=== PATIENT | female | born 1980 | race Caucasian/White ===

== ENCOUNTER 2020-12-01 14:21 | Emergency (ER) | payer OTHER ==
[~2020-12-01] VITALS: Ht 172.7 cm; Wt 109.1 kg
[2020-12-01] MEDS ORDERED: QUET200T PO (14:29)
[2020-12-01] MEDS ORDERED: THYR30 PO (14:29)
[2020-12-01] MEDS ORDERED: ESCI-8 PO (14:29)
[2020-12-01 16:32] VITALS: BP 160/79
[2020-12-01 17:07] LABS: APPEARANCE,URINE CLOUDY (CLEAR); BILIRUBIN,URINE NEGATIVE (NEGATIVE); GLUCOSE, URINE (UA) NEGATIVE (NEGATIVE); KETONES,URINE TRACE mg/dL (NEGATIVE); LEUKOCYTE ESTERASE ,URINE SMALL (NEGATIVE); NITRATE,URINE NEGATIVE (NEGATIVE); OCCULT BLOOD,URINE LARGE (NEGATIVE); PROTEIN,URINE POS 1+ (NEGATIVE)
[2020-12-01 17:40] LABS: RBC,URINE 26-50 /HPF (0-2)
[2020-12-01 17:41] LABS: BACTERIA,URINE Moderate /HPF (None Seen); MUCUS,URINE Moderate LPF (None Seen); SQUAMOUS EPITHELIAL CELL,UR Few /LPF (None Seen)
== END 2020-12-01 17:02 | disposition left against medical advice (07) ==
LOC: EMS 14:21
DX: N93.9 Abnormal uterine and vaginal bleeding, unspecified (principal); F32.9 Major depressive disorder, single episode, unspecified
CPT/HCPCS: 81001; 87086; 99283

== ENCOUNTER 2022-07-26 10:26 | Emergency (ER) | payer OTHER ==
[~2022-07-26] VITALS: Ht 167.6 cm; Wt 81.8 kg
[~2022-07-26 10:26] MED LIST: ESCI-8 PO; QUET200T PO; THYR30 PO
[2022-07-26] MEDS ORDERED: ESCI20TA87 PO ×2 (10:48→15:14)
[2022-07-26] MEDS ORDERED: QUET400T54 PO (12:41)
[2022-07-26] MEDS ORDERED: PROMETHAZINE HCL 25 MG TABLET PO ONE (12:45)
[2022-07-26 13:17] LABS: BASOPHILS % (AUTO) 0.4 % (0.0-2.0); EOSINOPHILS % (AUTO) 0.5 % (1.0-6.0); HEMATOCRIT 42.8 % (36-46); LYMPHOCYTES # (AUTO) 2.9 K/uL (1.0-4.8); LYMPHOCYTES % (AUTO) 24.4 % (22.0-44.0); MEAN CORPUSCULAR HEMOGLOBIN 28.5 pg (26.0-34.0); MEAN CORPUSCULAR HGB CONC 32.8 G/dL (31.0-37.0); MEAN CORPUSCULAR VOLUME 87 fL (80-100); MONOCYTES # (AUTO) 0.7 K/uL (0.1-1.0); MONOCYTES % (AUTO) 6.4 % (2.0-9.0); NEUTROPHILS % (AUTO) 68.3 % (40.0-70.0); PLATELET COUNT (AUTO) 354 K/uL (150-450); RED BLOOD CELL COUNT(AUTO) 4.93 MIL/uL (4.00-5.20); RED CELL DISTRIBUTION WIDTH 13.8 % (11.5-14.5)
[2022-07-26] MEDS ORDERED: IBUPROFEN 600 MG TABLET ONE (13:18)
[2022-07-26 13:50] LABS: ANION GAP 10 mmol/L (8-16); CALCIUM, TOTAL 9.4 mg/dL (8.8-10.5); CARBON DIOXIDE 26 mmol/L (22-29); CHLORIDE 98 mmol/L (98-107); CREATININE 0.83 mg/dL (0.60-1.30); GLOMERULAR FILTR. RATE CALC > 60 mL/min (>60); GLUCOSE,RANDOM 96 mg/dL (70-110); POTASSIUM 4.3 mmol/L (3.5-5.1); SODIUM SERUM 134 mmol/L (136-145); UREA NITROGEN, BLOOD 10 mg/dL (7-18)
[2022-07-26 13:56] LABS: ALANINE AMINOTRANSFERASE 21 U/L (12-78); ALBUMIN 4.1 g/dL (3.4-5.0); ALKALINE PHOSPHATASE 134 U/L (46-116); ASPARTATE AMINOTRANSFERASE 15 U/L (15-37); BILIRUBIN,TOTAL 0.3 mg/dL (0.1-1.0); TOTAL PROTEIN, SERUM 7.8 g/dL (6.4-8.2)
[2022-07-26 14:19] LABS: FREE T4 (FREE THYROXINE) 0.95 ng/dL (0.76-1.46); THYROID STIMULATING HORMONE 4.62 uIU/mL (0.36-3.74)
[2022-07-26] MEDS ORDERED: QUET200T5 PO (15:10)
[2022-07-26 15:15] VITALS: BP 134/74
[2022-07-26] MEDS ORDERED: THYR30TA24 PO (15:15)
== END 2022-07-26 15:15 | disposition home or self-care (01) ==
LOC: EMS 10:28
DX: E03.9 Hypothyroidism, unspecified (principal); F43.10 Post-traumatic stress disorder, unspecified; F32.A Depression, unspecified; Z76.0 Encounter for issue of repeat prescription; X58.XXXD Exposure to other specified factors, subsequent encounter
CPT/HCPCS: 80053; 84439; 84443; 85025; 99283

== ENCOUNTER 2022-09-21 19:06 | Emergency (ER) | payer MEDICAID, OTHER ==
[~2022-09-21] VITALS: Ht 167.6 cm; Wt 79.0 kg
[~2022-09-21 19:06] MED LIST changes: -ESCI-8 PO; +ESCI20TA87 PO; -QUET200T PO; +QUET200T5 PO; +QUET400T54 PO; +THYR30TA24 PO
[2022-09-21] MEDS ORDERED: IBUPROFEN 600 MG TABLET PO ONE (20:15)
[2022-09-21] MEDS ORDERED: CYCLOBENZAPRINE HCL 10 MG TABLET PO ONE (20:15)
[2022-09-21 20:18] VITALS: BP 122/76
[2022-09-21] MEDS ORDERED: DiphenhydrAMINE HCL 50 MG/ML VIAL IM ONE (21:30)
[2022-09-21] MEDS ORDERED: HALOPERIDOL LACTATE 5 MG/ML VIAL IM ONE (21:30)
[2022-09-21] MEDS ORDERED: LORazepam 2 MG/ML VIAL IM ONE (21:30)
== END 2022-09-22 00:52 ==
LOC: EMS 19:07
DX: S10.93XA Contusion of unspecified part of neck, initial encounter (principal); S40.022A Contusion of left upper arm, initial encounter; F41.9 Anxiety disorder, unspecified; F31.9 Bipolar disorder, unspecified; E03.9 Hypothyroidism, unspecified; F20.9 Schizophrenia, unspecified; Y08.89XA Assault by other specified means, initial encounter; Y93.89 Activity, other specified; Y92.89 Other specified places as the place of occurrence of the external cause; Y99.8 Other external cause status
CPT/HCPCS: 99285; 96372; J1200; J1630; J2060

== ENCOUNTER 2022-10-07 18:56 | Inpatient (IN) | payer MEDICAID, OTHER ==
[~2022-10-07] VITALS: Ht 170.2 cm; Wt 81.4 kg
[~2022-10-07 18:56] MED LIST changes: -QUET400T54 PO; -THYR30TA24 PO
[2022-10-07] MEDS ORDERED: DiphenhydrAMINE HCL 50 MG/ML VIAL IM ONE (21:15)
[2022-10-07] MEDS ORDERED: LORazepam 2 MG/ML VIAL IM ONE (21:15)
[2022-10-07] MEDS ORDERED: HALOPERIDOL LACTATE 5 MG/ML VIAL IM ONE (21:15)
[2022-10-07 21:27] LABS: BASOPHILS % (AUTO) 0.6 % (0.0-2.0); HEMATOCRIT 39.5 % (36-46); HEMOGLOBIN 13.1 g/dL (12.0-16.0); LYMPHOCYTES # (AUTO) 1.8 K/uL (1.0-4.8); LYMPHOCYTES % (AUTO) 19.9 % (22.0-44.0); MEAN CORPUSCULAR HEMOGLOBIN 29.6 pg (26.0-34.0); MEAN CORPUSCULAR HGB CONC 33.2 G/dL (31.0-37.0); MEAN CORPUSCULAR VOLUME 89 fL (80-100); MONOCYTES # (AUTO) 0.7 K/uL (0.1-1.0); MONOCYTES % (AUTO) 7.8 % (2.0-9.0); NEUTROPHILS # (AUTO) 6.6 K/uL (1.8-7.7); NEUTROPHILS % (AUTO) 70.7 % (40.0-70.0); PLATELET COUNT (AUTO) 329 K/uL (150-450); RED BLOOD CELL COUNT(AUTO) 4.43 MIL/uL (4.00-5.20)
[2022-10-07 21:36] LABS: COVID AG,FIA SOURCE NASOPHARYNGEAL
[2022-10-07 21:40] LABS: ANION GAP 9 mmol/L (8-16); CALCIUM, TOTAL 9.1 mg/dL (8.8-10.5); CARBON DIOXIDE 27 mmol/L (22-29); CHLORIDE 102 mmol/L (98-107); CREATININE 0.71 mg/dL (0.60-1.30); GLOMERULAR FILTR. RATE CALC > 60 mL/min (>60); GLUCOSE,RANDOM 101 mg/dL (70-110); POTASSIUM 4.2 mmol/L (3.5-5.1); SODIUM SERUM 138 mmol/L (136-145)
[2022-10-07 21:44] LABS: ALANINE AMINOTRANSFERASE 90 U/L (12-78); ALBUMIN 3.9 g/dL (3.4-5.0); ALKALINE PHOSPHATASE 101 U/L (46-116); ASPARTATE AMINOTRANSFERASE 69 U/L (15-37); BILIRUBIN,TOTAL 0.6 mg/dL (0.1-1.0); TOTAL PROTEIN, SERUM 7.6 g/dL (6.4-8.2)
[2022-10-08 08:05] LABS: APPEARANCE,URINE HAZY (CLEAR); BILIRUBIN,URINE NEGATIVE (NEGATIVE); GLUCOSE, URINE (UA) NEGATIVE (NEGATIVE); KETONES,URINE TRACE mg/dL (NEGATIVE); LEUKOCYTE ESTERASE ,URINE LARGE (NEGATIVE); NITRATE,URINE NEGATIVE (NEGATIVE); OCCULT BLOOD,URINE LARGE (NEGATIVE); PH,URINE 6.5 (5.0-8.0); PROTEIN,URINE TRACE mg/dL (NEGATIVE); SPECIFIC GRAVITIY, URINE 1.015 (1.003-1.030); UROBILINOGEN,URINE <=1.0 mg/dL (<=1.0)
[2022-10-08 08:12] LABS: AMPHET/METH SCREEN,URINE NEGATIVE (NEGATIVE); BARBITURATE SCREEN, URINE NEGATIVE (NEGATIVE); BENZODIAZEPINES SCREEN,URINE NEGATIVE (NEGATIVE); CANNABINOID SCREEN,URINE NEGATIVE (NEGATIVE); COCAINE SCREEN,URINE NEGATIVE (NEGATIVE); METHADONE SCREEN, URINE NEGATIVE (NEGATIVE); OPIATE SCREEN,URINE NEGATIVE (NEGATIVE); PHENCYCLIDINE SCREEN,URINE NEGATIVE (NEGATIVE)
[2022-10-08 08:20] LABS: BACTERIA,URINE Many /HPF (None Seen); SQUAMOUS EPITHELIAL CELL,UR Many /LPF (None Seen)
[2022-10-08] MEDS: LORazepam 2 MG TABLET PO PRN ×3 (11:42→22:13)
[2022-10-09 02:11] VITALS: BP 129/69
[2022-10-09] MEDS ORDERED: PETROLATUM,WHITE 28 GM JELLY TP PRN (05:45)
[2022-10-09] MEDS ORDERED: LOPERAMIDE HCL 2 MG CAPSULE PO PRN (05:45)
[2022-10-09] MEDS ORDERED: ALBUTEROL SULFATE HFA 90 MCG/PUFF 8 GM INHALER IH PRN (05:45)
[2022-10-09] MEDS ORDERED: BACITRACIN 28 GM OINTMENT TP PRN (05:45)
[2022-10-09] MEDS ORDERED: CloNIDine HCL 0.1 MG TABLET PO PRN (05:45)
[2022-10-09] MEDS ORDERED: OMEPRAZOLE 20 MG CAPSULE PO PRN (05:45)
[2022-10-09] MEDS ORDERED: MAGNESIUM HYDROXIDE SUSPENSION 30 ML UDCUP PO PRN (05:45)
[2022-10-09] MEDS: THYROID 30 MG TABLET PO SCH (08:19)
[2022-10-09] MEDS: CEPHALEXIN MONOHYDRATE 500 MG CAPSULE PO SCH ×2 (08:19→16:36)
[2022-10-09] MEDS: LORazepam 2 MG TABLET PO PRN ×3 (08:23→20:27)
[2022-10-09 13:38] VITALS: BP 128/69
[2022-10-09] MEDS: IBUPROFEN 600 MG TABLET PO PRN (13:38)
[2022-10-09 16:17] VITALS: BP 115/69
[2022-10-09 18:32] VITALS: BP 126/74
[2022-10-09] MEDS: ACETAMINOPHEN 325 MG TABLET PO PRN (18:32)
[2022-10-09] MEDS: ZOLPIDEM TARTRATE 10 MG TABLET PO PRN (20:27)
[2022-10-09 20:31] VITALS: BP 104/78
[2022-10-10 00:45] VITALS: BP 118/87
[2022-10-10] MEDS: ACETAMINOPHEN 325 MG TABLET PO PRN (00:50)
[2022-10-10] MEDS: ONDANSETRON HCL 4 MG TABLET PO PRN (00:55)
[2022-10-10] MEDS ORDERED: DiphenhydrAMINE HCL 50 MG/ML VIAL IM ONE (03:30)
[2022-10-10] MEDS ORDERED: LORazepam 2 MG/ML VIAL IM ONE (03:30)
[2022-10-10] MEDS ORDERED: HALOPERIDOL LACTATE 5 MG/ML VIAL IM ONE (03:30)
[2022-10-10] MEDS ORDERED: DiphenhydrAMINE HCL 50 MG/ML VIAL ONE (03:32)
[2022-10-10] MEDS ORDERED: LORazepam 2 MG/ML VIAL ONE (03:32)
[2022-10-10] MEDS ORDERED: HALOPERIDOL LACTATE 5 MG/ML VIAL ONE (03:33)
[2022-10-10] MEDS: CEPHALEXIN MONOHYDRATE 500 MG CAPSULE PO SCH ×2 (09:57→16:36)
[2022-10-10] MEDS: THYROID 30 MG TABLET PO SCH (09:58)
[2022-10-10] MEDS: LORazepam 2 MG TABLET PO PRN ×2 (09:59→18:13)
[2022-10-10] MEDS: IBUPROFEN 600 MG TABLET PO PRN ×2 (10:54→18:12)
[2022-10-10 10:55] VITALS: BP 110/73
[2022-10-10 11:57] VITALS: BP 107/67
[2022-10-10 16:41] VITALS: BP 108/62
[2022-10-10 18:11] VITALS: BP 115/76
[2022-10-10] MEDS: QUEtiapine FUMARATE 200 MG TABLET PO SCH (21:12)
[2022-10-10] MEDS: ZOLPIDEM TARTRATE 10 MG TABLET PO PRN (21:43)
[2022-10-11 08:06] LABS: HEPATITIS C AB (EIA) Non Reactive (Non Reactive)
[2022-10-11] MEDS: THYROID 30 MG TABLET PO SCH (08:38)
[2022-10-11] MEDS: CEPHALEXIN MONOHYDRATE 500 MG CAPSULE PO SCH ×2 (08:38→16:36)
[2022-10-11 09:04] VITALS: BP 142/79
[2022-10-11] MEDS: IBUPROFEN 600 MG TABLET PO PRN ×2 (09:04→18:46)
[2022-10-11] MEDS: LORazepam 2 MG TABLET PO PRN ×2 (09:04→18:46)
[2022-10-11 16:18] VITALS: BP 113/91
[2022-10-11 18:46] VITALS: BP 130/80
[2022-10-11] MEDS: ZOLPIDEM TARTRATE 10 MG TABLET PO PRN (20:26)
[2022-10-11] MEDS: HALOPERIDOL 5 MG TABLET PO PRN (20:26)
[2022-10-11 20:58] VITALS: BP 116/78
[2022-10-11] MEDS: QUEtiapine FUMARATE 200 MG TABLET PO SCH (21:00)
[2022-10-12] MEDS: HALOPERIDOL 5 MG TABLET PO PRN ×2 (03:58→22:53)
[2022-10-12] MEDS: LORazepam 2 MG TABLET PO PRN ×4 (03:58→22:48)
[2022-10-12] MEDS: IBUPROFEN 600 MG TABLET PO PRN ×3 (04:18→20:53)
[2022-10-12] MEDS: THYROID 30 MG TABLET PO SCH (08:31)
[2022-10-12] MEDS: CEPHALEXIN MONOHYDRATE 500 MG CAPSULE PO SCH ×2 (08:31→16:24)
[2022-10-12 09:48] VITALS: BP 143/93
[2022-10-12] MEDS: ACETAMINOPHEN 325 MG TABLET PO PRN (09:48)
[2022-10-12 16:15] VITALS: BP 129/88
[2022-10-12 20:20] VITALS: BP 131/82
[2022-10-12 20:50] VITALS: BP 136/85
[2022-10-12] MEDS: QUEtiapine FUMARATE 200 MG TABLET PO SCH (21:00)
[2022-10-12] MEDS: ZOLPIDEM TARTRATE 10 MG TABLET PO PRN (21:14)
[2022-10-13] MEDS: LORazepam 2 MG TABLET PO PRN ×4 (03:14→18:27)
[2022-10-13] MEDS: HALOPERIDOL 5 MG TABLET PO PRN ×4 (03:14→18:27)
[2022-10-13] MEDS: THYROID 30 MG TABLET PO SCH (08:21)
[2022-10-13] MEDS: CEPHALEXIN MONOHYDRATE 500 MG CAPSULE PO SCH ×2 (08:21→16:54)
[2022-10-13 08:38] VITALS: BP 125/90
[2022-10-13] MEDS: ACETAMINOPHEN 325 MG TABLET PO PRN ×2 (08:38→16:55)
[2022-10-13] MEDS ORDERED: RisperiDONE 3 MG TABLET PO SCH (09:00)
[2022-10-13] MEDS: IBUPROFEN 600 MG TABLET PO PRN ×2 (11:22→15:11)
[2022-10-13 15:11] VITALS: BP 131/99
[2022-10-13 17:53] VITALS: BP 131/95
[2022-10-13 18:27] VITALS: BP 144/97
[2022-10-13] MEDS: QUEtiapine FUMARATE 300 MG TABLET PO SCH (20:35)
[2022-10-13] MEDS: ZOLPIDEM TARTRATE 10 MG TABLET PO PRN (21:37)
[2022-10-14] MEDS: HALOPERIDOL 5 MG TABLET PO PRN ×3 (00:04→17:04)
[2022-10-14] MEDS: LORazepam 2 MG TABLET PO PRN ×3 (00:04→17:04)
[2022-10-14] MEDS: THYROID 30 MG TABLET PO SCH (08:14)
[2022-10-14] MEDS: CEPHALEXIN MONOHYDRATE 500 MG CAPSULE PO SCH ×2 (08:15→16:46)
[2022-10-14 08:19] VITALS: BP 132/99
[2022-10-14] MEDS: IBUPROFEN 600 MG TABLET PO PRN (08:19)
[2022-10-14 09:19] VITALS: BP 98/56
[2022-10-14] MEDS: ACETAMINOPHEN 325 MG TABLET PO PRN (17:40)
[2022-10-14 17:42] VITALS: BP 123/83
[2022-10-14] MEDS: ONDANSETRON HCL 4 MG TABLET PO PRN (19:37)
[2022-10-14 20:11] VITALS: BP 125/70
[2022-10-14] MEDS: QUEtiapine FUMARATE 300 MG TABLET PO SCH (20:53)
[2022-10-15] MEDS: LORazepam 2 MG TABLET PO PRN ×3 (03:55→16:21)
[2022-10-15] MEDS: HALOPERIDOL 5 MG TABLET PO PRN ×3 (03:55→16:21)
[2022-10-15 08:18] VITALS: BP 106/73
[2022-10-15] MEDS: THYROID 30 MG TABLET PO SCH (08:19)
[2022-10-15] MEDS: CEPHALEXIN MONOHYDRATE 500 MG CAPSULE PO SCH ×2 (08:19→16:20)
[2022-10-15] MEDS ORDERED: TUBERCULIN, PURIFIED PROTEIN DERIVATIVE 5 TU/0.1 ML SYRINGE ID ONE (11:00)
[2022-10-15] MEDS ORDERED: LOPERAMIDE HCL 2 MG CAPSULE PO PRN (11:00)
[2022-10-15] MEDS ORDERED: MAGNESIUM HYDROXIDE SUSPENSION 30 ML UDCUP PO PRN (11:00)
[2022-10-15] MEDS ORDERED: PROMETHAZINE HCL 25 MG TABLET PO PRN (11:00)
[2022-10-15] MEDS ORDERED: GuaiFENesin/D-METHORPHAN [SUGAR-FREE] 200-20MG/10 ML SYRUP UDCUP PO PRN (11:00)
[2022-10-15] MEDS ORDERED: MAG HYDROX/AL HYDROX/SIMETH ES 30 ML SUSPENSION UDCUP PO PRN (11:00)
[2022-10-15 11:45] VITALS: BP 110/84
[2022-10-15 16:06] VITALS: BP 112/70
[2022-10-15] MEDS: THIAMINE 100 MG TABLET PO SCH (16:20)
[2022-10-15] MEDS: ACETAMINOPHEN 325 MG TABLET PO PRN ×2 (16:57→17:02)
[2022-10-15 20:18] VITALS: BP 120/70
[2022-10-15 20:50] VITALS: BP 120/70
[2022-10-15] MEDS: IBUPROFEN 600 MG TABLET PO PRN (20:54)
[2022-10-15] MEDS: MELATONIN 5 MG TABLET PO SCH (20:55)
[2022-10-15] MEDS ORDERED: HALOPERIDOL 10 MG TABLET PO SCH (21:00)
[2022-10-15] MEDS: ZOLPIDEM TARTRATE 10 MG TABLET PO PRN (21:08)
[2022-10-16] MEDS: LORazepam 2 MG TABLET PO PRN ×4 (00:53→22:02)
[2022-10-16 06:00] VITALS: BP 131/82
[2022-10-16] MEDS: IBUPROFEN 600 MG TABLET PO PRN ×2 (06:12→15:14)
[2022-10-16] MEDS: QUEtiapine FUMARATE 25 MG TABLET PO PRN ×3 (06:48→16:18)
[2022-10-16] MEDS: THIAMINE 100 MG TABLET PO SCH ×2 (09:14→16:26)
[2022-10-16] MEDS: FOLIC ACID 1 MG TABLET PO SCH (09:14)
[2022-10-16] MEDS: MULTIVITAMINS WITH MINERALS, THERAPEUTIC TABLET PO SCH (09:14)
[2022-10-16] MEDS: OMEGA-3/DHA/EPA/FISH OIL 1,000 MG CAPSULE PO SCH (09:15)
[2022-10-16] MEDS: THYROID 30 MG TABLET PO SCH (09:15)
[2022-10-16 16:14] VITALS: BP 103/73
[2022-10-16] MEDS: ACETAMINOPHEN 325 MG TABLET PO PRN (18:32)
[2022-10-16 18:41] LABS: APPEARANCE,URINE HAZY (CLEAR); BILIRUBIN,URINE NEGATIVE (NEGATIVE); GLUCOSE, URINE (UA) NEGATIVE (NEGATIVE); KETONES,URINE NEGATIVE (NEGATIVE); LEUKOCYTE ESTERASE ,URINE NEGATIVE (NEGATIVE); NITRATE,URINE NEGATIVE (NEGATIVE); OCCULT BLOOD,URINE NEGATIVE (NEGATIVE); PROTEIN,URINE NEGATIVE (NEGATIVE); SPECIFIC GRAVITIY, URINE 1.014 (1.003-1.030); UROBILINOGEN,URINE <=1.0 mg/dL (<=1.0)
[2022-10-16] MEDS: QUEtiapine FUMARATE 300 MG TABLET PO SCH (20:32)
[2022-10-16] MEDS: MELATONIN 5 MG TABLET PO SCH (20:32)
[2022-10-17] MEDS: ZOLPIDEM TARTRATE 10 MG TABLET PO PRN ×2 (00:01→20:23)
[2022-10-17 02:56] VITALS: BP 115/73
[2022-10-17] MEDS: ACETAMINOPHEN 325 MG TABLET PO PRN ×3 (02:56→13:05)
[2022-10-17] MEDS: MAG HYDROX/AL HYDROX/SIMETH ES 30 ML SUSPENSION UDCUP PO PRN ×2 (03:35→09:52)
[2022-10-17] MEDS: LORazepam 2 MG TABLET PO PRN ×4 (04:20→21:24)
[2022-10-17] MEDS: FOLIC ACID 1 MG TABLET PO SCH (08:01)
[2022-10-17] MEDS: THIAMINE 100 MG TABLET PO SCH ×2 (08:01→16:04)
[2022-10-17] MEDS: MULTIVITAMINS WITH MINERALS, THERAPEUTIC TABLET PO SCH (08:01)
[2022-10-17] MEDS: ESCITALOPRAM OXALATE 10 MG TABLET PO SCH (08:01)
[2022-10-17] MEDS: OMEGA-3/DHA/EPA/FISH OIL 1,000 MG CAPSULE PO SCH (08:02)
[2022-10-17] MEDS: THYROID 30 MG TABLET PO SCH (08:02)
[2022-10-17 08:03] LABS: COVID AG,FIA SOURCE NASAL SWAB
[2022-10-17] MEDS: QUEtiapine FUMARATE 25 MG TABLET PO PRN ×3 (08:05→21:24)
[2022-10-17 08:22] VITALS: BP 132/79
[2022-10-17] MEDS ORDERED: ESCITALOPRAM OXALATE 10 MG TABLET PO SCH (09:00)
[2022-10-17] MEDS: IBUPROFEN 600 MG TABLET PO PRN ×2 (10:28→18:03)
[2022-10-17 16:08] VITALS: BP 123/91
[2022-10-17] MEDS: QUEtiapine FUMARATE 300 MG TABLET PO SCH (20:08)
[2022-10-17] MEDS: MELATONIN 5 MG TABLET PO SCH (20:08)
[2022-10-17 20:16] VITALS: BP 120/78
[2022-10-17] MEDS: HydrOXYzine PAMOATE 50 MG CAPSULE PO PRN (20:23)
[2022-10-18] MEDS: FOLIC ACID 1 MG TABLET PO SCH (08:12)
[2022-10-18] MEDS: THYROID 30 MG TABLET PO SCH (08:12)
[2022-10-18] MEDS: MULTIVITAMINS WITH MINERALS, THERAPEUTIC TABLET PO SCH (08:12)
[2022-10-18] MEDS: ESCITALOPRAM OXALATE 10 MG TABLET PO SCH (08:12)
[2022-10-18] MEDS: OMEGA-3/DHA/EPA/FISH OIL 1,000 MG CAPSULE PO SCH (08:12)
[2022-10-18] MEDS: THIAMINE 100 MG TABLET PO SCH ×2 (08:12→16:04)
[2022-10-18 08:22] VITALS: BP 119/83
[2022-10-18 08:50] LABS: HEMOGLOBIN A1C 5.3 % (3.8-5.6)
[2022-10-18 09:02] LABS: CHOL/HDL RATIO 3.6 (3.9-5.7); FREE T4 (FREE THYROXINE) 0.75 ng/dL (0.76-1.46); THYROID STIMULATING HORMONE 0.78 uIU/mL (0.36-3.74)
[2022-10-18] MEDS: QUEtiapine FUMARATE 25 MG TABLET PO PRN ×2 (16:09→21:41)
[2022-10-18 16:16] VITALS: BP 118/79
[2022-10-18] MEDS: IBUPROFEN 600 MG TABLET PO PRN (18:35)
[2022-10-18] MEDS: LORazepam 2 MG TABLET PO PRN (19:03)
[2022-10-18] MEDS: MELATONIN 5 MG TABLET PO SCH (20:30)
[2022-10-18] MEDS: QUEtiapine FUMARATE 200 MG TABLET PO SCH (20:30)
[2022-10-18 20:46] VITALS: BP 116/76
[2022-10-18] MEDS: HydrOXYzine PAMOATE 50 MG CAPSULE PO PRN (21:24)
[2022-10-18] MEDS: ZOLPIDEM TARTRATE 10 MG TABLET PO PRN (21:25)
[2022-10-19] MEDS: LORazepam 2 MG TABLET PO PRN ×4 (00:32→16:23)
[2022-10-19 07:29] VITALS: BP 128/76
[2022-10-19] MEDS: ACETAMINOPHEN 325 MG TABLET PO PRN (07:29)
[2022-10-19] MEDS: ESCITALOPRAM OXALATE 10 MG TABLET PO SCH (08:13)
[2022-10-19] MEDS: MULTIVITAMINS WITH MINERALS, THERAPEUTIC TABLET PO SCH (08:13)
[2022-10-19] MEDS: THIAMINE 100 MG TABLET PO SCH ×2 (08:13→16:11)
[2022-10-19] MEDS: OMEGA-3/DHA/EPA/FISH OIL 1,000 MG CAPSULE PO SCH (08:13)
[2022-10-19] MEDS: THYROID 30 MG TABLET PO SCH (08:14)
[2022-10-19] MEDS: FOLIC ACID 1 MG TABLET PO SCH (08:14)
[2022-10-19 08:54] VITALS: BP 102/71
[2022-10-19 15:19] VITALS: BP 122/74
[2022-10-19] MEDS: IBUPROFEN 600 MG TABLET PO PRN (15:19)
[2022-10-19] MEDS: QUEtiapine FUMARATE 25 MG TABLET PO PRN ×2 (18:17→18:36)
[2022-10-19 20:14] VITALS: BP 110/73
[2022-10-19] MEDS: QUEtiapine FUMARATE 200 MG TABLET PO SCH (21:00)
[2022-10-19] MEDS: MELATONIN 5 MG TABLET PO SCH (21:00)
[2022-10-19] MEDS: ZOLPIDEM TARTRATE 10 MG TABLET PO PRN (23:12)
[2022-10-20] MEDS: LORazepam 2 MG TABLET PO PRN ×4 (00:52→18:32)
[2022-10-20] MEDS: THIAMINE 100 MG TABLET PO SCH ×2 (08:33→16:17)
[2022-10-20] MEDS: OMEGA-3/DHA/EPA/FISH OIL 1,000 MG CAPSULE PO SCH (08:33)
[2022-10-20] MEDS: MULTIVITAMINS WITH MINERALS, THERAPEUTIC TABLET PO SCH (08:33)
[2022-10-20] MEDS: THYROID 30 MG TABLET PO SCH (08:33)
[2022-10-20] MEDS: ESCITALOPRAM OXALATE 10 MG TABLET PO SCH (08:33)
[2022-10-20] MEDS: FOLIC ACID 1 MG TABLET PO SCH (08:33)
[2022-10-20 09:22] VITALS: BP 127/69
[2022-10-20] MEDS: QUEtiapine FUMARATE 25 MG TABLET PO PRN ×2 (09:57→16:16)
[2022-10-20 10:36] VITALS: BP 135/68
[2022-10-20] MEDS: IBUPROFEN 600 MG TABLET PO PRN ×2 (10:36→18:32)
[2022-10-20 16:21] VITALS: BP 134/86
[2022-10-20] MEDS: ACETAMINOPHEN 325 MG TABLET PO PRN (16:21)
[2022-10-20 16:33] VITALS: BP 134/86
[2022-10-20 18:32] VITALS: BP 130/74
[2022-10-20] MEDS: MELATONIN 5 MG TABLET PO SCH (20:11)
[2022-10-20] MEDS: QUEtiapine FUMARATE 200 MG TABLET PO SCH (21:00)
[2022-10-20] MEDS: ZOLPIDEM TARTRATE 10 MG TABLET PO PRN (21:53)
[2022-10-21] MEDS: QUEtiapine FUMARATE 25 MG TABLET PO PRN ×3 (00:12→13:31)
[2022-10-21 00:25] VITALS: BP 122/81
[2022-10-21] MEDS: ACETAMINOPHEN 325 MG TABLET PO PRN ×2 (00:25→15:54)
[2022-10-21] MEDS: LORazepam 2 MG TABLET PO PRN ×3 (06:25→18:21)
[2022-10-21] MEDS: ESCITALOPRAM OXALATE 10 MG TABLET PO SCH (08:17)
[2022-10-21] MEDS: MULTIVITAMINS WITH MINERALS, THERAPEUTIC TABLET PO SCH (08:17)
[2022-10-21] MEDS: FOLIC ACID 1 MG TABLET PO SCH (08:17)
[2022-10-21] MEDS: THIAMINE 100 MG TABLET PO SCH ×2 (08:17→15:53)
[2022-10-21] MEDS: THYROID 30 MG TABLET PO SCH (08:17)
[2022-10-21] MEDS: OMEGA-3/DHA/EPA/FISH OIL 1,000 MG CAPSULE PO SCH (08:17)
[2022-10-21 08:37] VITALS: BP 134/94
[2022-10-21 12:20] VITALS: BP 136/86
[2022-10-21] MEDS: IBUPROFEN 600 MG TABLET PO PRN (12:20)
[2022-10-21 15:54] VITALS: BP 134/94
[2022-10-21 16:54] VITALS: BP 132/86
[2022-10-21] MEDS ORDERED: MELA5TAB40 PO (17:30)
[2022-10-21] MEDS ORDERED: ESCI10 PO (17:30)
[2022-10-21] MEDS ORDERED: QUET300T19 PO (17:30)
[2022-10-21] MEDS ORDERED: OMEG-135 PO (17:30)
[2022-10-21] MEDS: MELATONIN 5 MG TABLET PO SCH (20:03)
[2022-10-21 20:11] VITALS: BP 144/79
[2022-10-21] MEDS ORDERED: QUEtiapine FUMARATE 300 MG TABLET PO SCH (21:00)
[2022-10-21] MEDS: ZOLPIDEM TARTRATE 10 MG TABLET PO PRN (21:14)
[2022-10-22] MEDS: QUEtiapine FUMARATE 25 MG TABLET PO PRN ×3 (05:12→17:53)
[2022-10-22] MEDS: LORazepam 2 MG TABLET PO PRN ×3 (05:12→15:55)
[2022-10-22 08:00] VITALS: BP 115/76
[2022-10-22] MEDS: THIAMINE 100 MG TABLET PO SCH ×2 (08:01→15:55)
[2022-10-22] MEDS: MULTIVITAMINS WITH MINERALS, THERAPEUTIC TABLET PO SCH (08:01)
[2022-10-22] MEDS: ESCITALOPRAM OXALATE 10 MG TABLET PO SCH (08:01)
[2022-10-22] MEDS: OMEGA-3/DHA/EPA/FISH OIL 1,000 MG CAPSULE PO SCH (08:01)
[2022-10-22] MEDS: FOLIC ACID 1 MG TABLET PO SCH (08:01)
[2022-10-22] MEDS: THYROID 30 MG TABLET PO SCH (08:01)
[2022-10-22 12:09] VITALS: BP 117/78
[2022-10-22] MEDS: IBUPROFEN 600 MG TABLET PO PRN (12:09)
[2022-10-22 16:09] VITALS: BP 119/77
[2022-10-22] MEDS: MELATONIN 5 MG TABLET PO SCH (20:37)
[2022-10-22] MEDS ORDERED: QUEtiapine FUMARATE 200 MG TABLET PO SCH (21:00)
[2022-10-23 08:07] VITALS: BP 95/60
[2022-10-23] MEDS: ESCITALOPRAM OXALATE 10 MG TABLET PO SCH (08:20)
[2022-10-23] MEDS: OMEGA-3/DHA/EPA/FISH OIL 1,000 MG CAPSULE PO SCH (08:20)
[2022-10-23] MEDS: MULTIVITAMINS WITH MINERALS, THERAPEUTIC TABLET PO SCH (08:20)
[2022-10-23] MEDS: THYROID 30 MG TABLET PO SCH (08:21)
[2022-10-23] MEDS: THIAMINE 100 MG TABLET PO SCH ×2 (08:21→16:00)
[2022-10-23] MEDS: FOLIC ACID 1 MG TABLET PO SCH (08:21)
[2022-10-23] MEDS: LORazepam 2 MG TABLET PO PRN ×2 (08:22→15:58)
[2022-10-23] MEDS: QUEtiapine FUMARATE 25 MG TABLET PO PRN ×2 (09:33→17:49)
[2022-10-23] MEDS: MELATONIN 5 MG TABLET PO SCH (20:48)
[2022-10-23] MEDS: QUEtiapine FUMARATE 200 MG TABLET PO SCH (20:48)
[2022-10-23] MEDS: ZOLPIDEM TARTRATE 10 MG TABLET PO PRN (21:25)
[2022-10-24] MEDS: LORazepam 2 MG TABLET PO PRN ×2 (00:08→10:01)
[2022-10-24] MEDS: FOLIC ACID 1 MG TABLET PO SCH (08:06)
[2022-10-24] MEDS: OMEGA-3/DHA/EPA/FISH OIL 1,000 MG CAPSULE PO SCH (08:06)
[2022-10-24] MEDS: THYROID 30 MG TABLET PO SCH (08:06)
[2022-10-24] MEDS: MULTIVITAMINS WITH MINERALS, THERAPEUTIC TABLET PO SCH (08:07)
[2022-10-24] MEDS: THIAMINE 100 MG TABLET PO SCH ×2 (08:07→15:17)
[2022-10-24] MEDS: ESCITALOPRAM OXALATE 10 MG TABLET PO SCH (08:07)
[2022-10-24 09:26] VITALS: BP 106/63
[2022-10-24 10:01] VITALS: BP 112/68
[2022-10-24] MEDS: IBUPROFEN 600 MG TABLET PO PRN ×2 (10:01→16:28)
[2022-10-24] MEDS ORDERED: HALOPERIDOL LACTATE 5 MG/ML VIAL IM ONE (11:30)
[2022-10-24] MEDS ORDERED: LORazepam 2 MG/ML VIAL IM ONE (11:30)
[2022-10-24] MEDS ORDERED: DiphenhydrAMINE HCL 50 MG/ML VIAL IM ONE (11:30)
[2022-10-24] MEDS: QUEtiapine FUMARATE 25 MG TABLET PO PRN (15:17)
[2022-10-24 16:28] VITALS: BP 124/78
[2022-10-24 20:30] VITALS: BP 131/74
[2022-10-24] MEDS: QUEtiapine FUMARATE 200 MG TABLET PO SCH (21:06)
[2022-10-24] MEDS: MELATONIN 5 MG TABLET PO SCH (21:06)
[2022-10-24] MEDS: ZOLPIDEM TARTRATE 10 MG TABLET PO PRN (21:34)
[2022-10-25] MEDS: LORazepam 2 MG TABLET PO PRN (06:50)
[2022-10-25] MEDS: THIAMINE 100 MG TABLET PO SCH (08:14)
[2022-10-25] MEDS: FOLIC ACID 1 MG TABLET PO SCH (08:14)
[2022-10-25] MEDS: MULTIVITAMINS WITH MINERALS, THERAPEUTIC TABLET PO SCH (08:14)
[2022-10-25] MEDS: ESCITALOPRAM OXALATE 10 MG TABLET PO SCH (08:15)
[2022-10-25] MEDS: OMEGA-3/DHA/EPA/FISH OIL 1,000 MG CAPSULE PO SCH (08:15)
[2022-10-25] MEDS: THYROID 30 MG TABLET PO SCH (08:15)
[2022-10-25 08:17] VITALS: BP 109/54
[2022-10-25 09:44] VITALS: BP 118/76
[2022-10-25] MEDS: IBUPROFEN 600 MG TABLET PO PRN ×2 (09:44→17:18)
[2022-10-25] MEDS: MAG HYDROX/AL HYDROX/SIMETH ES 30 ML SUSPENSION UDCUP PO PRN ×2 (10:17→21:57)
[2022-10-25] MEDS: QUEtiapine FUMARATE 25 MG TABLET PO PRN ×2 (12:12→17:42)
[2022-10-25] MEDS: LORazepam 0.5 MG TABLET PO PRN ×2 (14:19→21:25)
[2022-10-25] MEDS ORDERED: ROPINIRole HCL 1 MG TABLET PO PRN (17:00)
[2022-10-25 17:18] VITALS: BP 122/74
[2022-10-25] MEDS: QUEtiapine FUMARATE 200 MG TABLET PO SCH (20:21)
[2022-10-25] MEDS: MELATONIN 5 MG TABLET PO SCH (20:22)
[2022-10-25] MEDS: ROPINIRole HCL 1 MG TABLET PO SCH (20:22)
[2022-10-25] MEDS: ZOLPIDEM TARTRATE 10 MG TABLET PO PRN (21:25)
[2022-10-26 00:06] VITALS: BP 116/70
[2022-10-26 06:43] VITALS: BP 120/73
[2022-10-26] MEDS: ACETAMINOPHEN 325 MG TABLET PO PRN ×2 (06:43→15:53)
[2022-10-26] MEDS: LORazepam 0.5 MG TABLET PO PRN ×3 (07:48→18:16)
[2022-10-26] MEDS: THYROID 30 MG TABLET PO SCH (07:57)
[2022-10-26] MEDS: OMEGA-3/DHA/EPA/FISH OIL 1,000 MG CAPSULE PO SCH (07:57)
[2022-10-26] MEDS: ESCITALOPRAM OXALATE 10 MG TABLET PO SCH (07:57)
[2022-10-26] MEDS: MULTIVITAMINS WITH MINERALS, THERAPEUTIC TABLET PO SCH (07:58)
[2022-10-26 08:14] VITALS: BP 109/68
[2022-10-26] MEDS: QUEtiapine FUMARATE 25 MG TABLET PO PRN ×3 (08:39→16:44)
[2022-10-26] MEDS: MAG HYDROX/AL HYDROX/SIMETH ES 30 ML SUSPENSION UDCUP PO PRN (15:45)
[2022-10-26 15:53] VITALS: BP 126/78
[2022-10-26] MEDS: MELATONIN 5 MG TABLET PO SCH (20:45)
[2022-10-26] MEDS: QUEtiapine FUMARATE 200 MG TABLET PO SCH (20:45)
[2022-10-26] MEDS: ROPINIRole HCL 1 MG TABLET PO SCH (20:47)
[2022-10-26 21:56] VITALS: BP 124/70
[2022-10-27] MEDS: LORazepam 0.5 MG TABLET PO PRN ×4 (00:03→17:57)
[2022-10-27] MEDS: ZOLPIDEM TARTRATE 10 MG TABLET PO PRN ×2 (00:03→23:37)
[2022-10-27] MEDS: QUEtiapine FUMARATE 25 MG TABLET PO PRN ×3 (06:36→15:08)
[2022-10-27] MEDS: ONDANSETRON HCL 4 MG TABLET PO PRN (06:51)
[2022-10-27] MEDS: OMEGA-3/DHA/EPA/FISH OIL 1,000 MG CAPSULE PO SCH (08:04)
[2022-10-27] MEDS: THYROID 30 MG TABLET PO SCH (08:04)
[2022-10-27] MEDS: ESCITALOPRAM OXALATE 10 MG TABLET PO SCH (08:04)
[2022-10-27] MEDS: MULTIVITAMINS WITH MINERALS, THERAPEUTIC TABLET PO SCH (08:06)
[2022-10-27] MEDS: IBUPROFEN 600 MG TABLET PO PRN ×2 (08:07→14:36)
[2022-10-27] MEDS: ACETAMINOPHEN 325 MG TABLET PO PRN ×2 (11:08→17:45)
[2022-10-27] MEDS: ROPINIRole HCL 1 MG TABLET PO SCH (20:43)
[2022-10-27] MEDS: QUEtiapine FUMARATE 200 MG TABLET PO SCH (20:43)
[2022-10-27] MEDS: MELATONIN 5 MG TABLET PO SCH (20:43)
[2022-10-28 07:04] VITALS: BP 124/74
[2022-10-28] MEDS: QUEtiapine FUMARATE 25 MG TABLET PO PRN (07:06)
[2022-10-28] MEDS: IBUPROFEN 600 MG TABLET PO PRN ×2 (07:07→23:57)
[2022-10-28 08:07] VITALS: BP 101/62
[2022-10-28] MEDS: MULTIVITAMINS WITH MINERALS, THERAPEUTIC TABLET PO SCH (08:13)
[2022-10-28] MEDS: ESCITALOPRAM OXALATE 10 MG TABLET PO SCH (08:14)
[2022-10-28] MEDS: THYROID 30 MG TABLET PO SCH (08:14)
[2022-10-28] MEDS: OMEGA-3/DHA/EPA/FISH OIL 1,000 MG CAPSULE PO SCH (08:14)
[2022-10-28] MEDS: LORazepam 0.5 MG TABLET PO PRN (10:14)
[2022-10-28] MEDS: ACETAMINOPHEN 325 MG TABLET PO PRN (15:54)
[2022-10-28 15:55] VITALS: BP 108/69
[2022-10-28 16:54] VITALS: BP 102/67
[2022-10-28] MEDS: MELATONIN 5 MG TABLET PO SCH (20:26)
[2022-10-28] MEDS: QUEtiapine FUMARATE 300 MG TABLET PO SCH (20:27)
[2022-10-28 23:55] VITALS: BP 110/65
[2022-10-28] MEDS: ZOLPIDEM TARTRATE 10 MG TABLET PO PRN (23:56)
[2022-10-29 06:45] VITALS: BP 110/72
[2022-10-29] MEDS: IBUPROFEN 600 MG TABLET PO PRN (06:47)
[2022-10-29 07:47] VITALS: BP 108/72
[2022-10-29] MEDS: OMEGA-3/DHA/EPA/FISH OIL 1,000 MG CAPSULE PO SCH (08:12)
[2022-10-29] MEDS: MULTIVITAMINS WITH MINERALS, THERAPEUTIC TABLET PO SCH (08:12)
[2022-10-29] MEDS: ESCITALOPRAM OXALATE 10 MG TABLET PO SCH (08:13)
[2022-10-29] MEDS: THYROID 30 MG TABLET PO SCH (08:13)
[2022-10-29] MEDS: LORazepam 0.5 MG TABLET PO PRN ×2 (09:04→16:17)
[2022-10-29] MEDS: QUEtiapine FUMARATE 25 MG TABLET PO PRN (09:04)
[2022-10-29 09:06] VITALS: BP 108/72
[2022-10-29 14:16] VITALS: BP 104/67
[2022-10-29] MEDS: ACETAMINOPHEN 325 MG TABLET PO PRN (14:16)
[2022-10-29] MEDS: ONDANSETRON HCL 4 MG TABLET PO PRN (14:36)
[2022-10-29 15:16] VITALS: BP 111/65
[2022-10-29] MEDS: QUEtiapine FUMARATE 25 MG TABLET PO SCH (20:59)
[2022-10-29] MEDS: QUEtiapine FUMARATE 300 MG TABLET PO SCH (20:59)
[2022-10-29] MEDS: ROPINIRole HCL 1 MG TABLET PO SCH (20:59)
[2022-10-29] MEDS: MELATONIN 5 MG TABLET PO SCH (21:00)
[2022-10-30] VITALS (8 sets, daily range): BP systolic 108–118; BP diastolic 72–81
[2022-10-30] MEDS: ZOLPIDEM TARTRATE 10 MG TABLET PO PRN (00:58)
[2022-10-30] MEDS: LORazepam 0.5 MG TABLET PO PRN ×3 (01:16→14:07)
[2022-10-30] MEDS: QUEtiapine FUMARATE 25 MG TABLET PO PRN ×2 (08:07→14:07)
[2022-10-30] MEDS: OMEGA-3/DHA/EPA/FISH OIL 1,000 MG CAPSULE PO SCH (08:07)
[2022-10-30] MEDS: MULTIVITAMINS WITH MINERALS, THERAPEUTIC TABLET PO SCH (08:07)
[2022-10-30] MEDS: ESCITALOPRAM OXALATE 10 MG TABLET PO SCH (08:07)
[2022-10-30] MEDS: THYROID 30 MG TABLET PO SCH (08:08)
[2022-10-30] MEDS: IBUPROFEN 600 MG TABLET PO PRN ×2 (11:13→17:58)
[2022-10-30] MEDS: ACETAMINOPHEN 325 MG TABLET PO PRN (14:09)
[2022-10-30] MEDS: MELATONIN 5 MG TABLET PO SCH (21:03)
[2022-10-30] MEDS: ROPINIRole HCL 1 MG TABLET PO SCH (21:04)
[2022-10-30] MEDS: QUEtiapine FUMARATE 25 MG TABLET PO SCH (21:04)
[2022-10-30] MEDS: QUEtiapine FUMARATE 300 MG TABLET PO SCH (21:04)
[2022-10-31 06:39] VITALS: BP 120/80
[2022-10-31] MEDS: IBUPROFEN 600 MG TABLET PO PRN (06:41)
[2022-10-31 07:41] VITALS: BP 121/79
[2022-10-31] MEDS: THYROID 30 MG TABLET PO SCH (08:46)
[2022-10-31] MEDS: MULTIVITAMINS WITH MINERALS, THERAPEUTIC TABLET PO SCH (08:46)
[2022-10-31] MEDS: OMEGA-3/DHA/EPA/FISH OIL 1,000 MG CAPSULE PO SCH (08:46)
[2022-10-31] MEDS: LORazepam 0.5 MG TABLET PO PRN ×2 (08:47→15:45)
[2022-10-31] MEDS: QUEtiapine FUMARATE 25 MG TABLET PO PRN ×2 (08:47→15:45)
[2022-10-31] MEDS: ESCITALOPRAM OXALATE 10 MG TABLET PO SCH (08:47)
[2022-10-31 08:55] VITALS: BP 125/85
[2022-10-31 20:29] VITALS: BP 112/68
[2022-10-31] MEDS: QUEtiapine FUMARATE 200 MG TABLET PO SCH (20:39)
[2022-10-31] MEDS: MELATONIN 5 MG TABLET PO SCH (20:39)
[2022-10-31] MEDS ORDERED: QUEtiapine FUMARATE 25 MG TABLET PO SCH (21:00)
[2022-11-01] MEDS: THYROID 30 MG TABLET PO SCH (07:52)
[2022-11-01] MEDS: OMEGA-3/DHA/EPA/FISH OIL 1,000 MG CAPSULE PO SCH (07:53)
[2022-11-01] MEDS: ESCITALOPRAM OXALATE 10 MG TABLET PO SCH (07:53)
[2022-11-01] MEDS: MULTIVITAMINS WITH MINERALS, THERAPEUTIC TABLET PO SCH (07:53)
[2022-11-01 08:42] VITALS: BP 106/73
[2022-11-01] MEDS: IBUPROFEN 600 MG TABLET PO PRN ×2 (09:07→17:55)
[2022-11-01] MEDS: ACETAMINOPHEN 325 MG TABLET PO PRN (13:58)
[2022-11-01] MEDS: DOCUSATE SODIUM 100 MG CAPSULE PO PRN (14:54)
[2022-11-01] MEDS: QUEtiapine FUMARATE 25 MG TABLET PO PRN (14:56)
[2022-11-01 17:55] VITALS: BP 111/78
[2022-11-01] MEDS: MELATONIN 5 MG TABLET PO SCH (20:58)
[2022-11-01] MEDS: QUEtiapine FUMARATE 200 MG TABLET PO SCH (20:58)
[2022-11-02] MEDS: MULTIVITAMINS WITH MINERALS, THERAPEUTIC TABLET PO SCH (08:16)
[2022-11-02] MEDS: ESCITALOPRAM OXALATE 10 MG TABLET PO SCH (08:16)
[2022-11-02] MEDS: THYROID 30 MG TABLET PO SCH (08:16)
[2022-11-02] MEDS: OMEGA-3/DHA/EPA/FISH OIL 1,000 MG CAPSULE PO SCH (08:16)
[2022-11-02 08:57] VITALS: BP 110/69
[2022-11-02] MEDS: ACETAMINOPHEN 325 MG TABLET PO PRN (14:44)
[2022-11-02 20:30] VITALS: BP 114/80
[2022-11-02] MEDS: IBUPROFEN 600 MG TABLET PO PRN (20:30)
[2022-11-02 20:34] VITALS: BP 114/80
[2022-11-02] MEDS: QUEtiapine FUMARATE 200 MG TABLET PO SCH (21:05)
[2022-11-02] MEDS: MELATONIN 5 MG TABLET PO SCH (21:05)
[2022-11-02 21:30] VITALS: BP 117/78
[2022-11-03 07:10] VITALS: BP 104/76
[2022-11-03] MEDS: IBUPROFEN 600 MG TABLET PO PRN ×3 (07:10→21:18)
[2022-11-03] MEDS: THYROID 30 MG TABLET PO SCH (08:09)
[2022-11-03] MEDS: MULTIVITAMINS WITH MINERALS, THERAPEUTIC TABLET PO SCH (08:11)
[2022-11-03] MEDS: ESCITALOPRAM OXALATE 10 MG TABLET PO SCH (08:11)
[2022-11-03] MEDS: OMEGA-3/DHA/EPA/FISH OIL 1,000 MG CAPSULE PO SCH (08:11)
[2022-11-03 10:20] VITALS: BP 100/64
[2022-11-03] MEDS: ACETAMINOPHEN 325 MG TABLET PO PRN (18:41)
[2022-11-03 21:12] VITALS: BP 112/77
[2022-11-03] MEDS: QUEtiapine FUMARATE 200 MG TABLET PO SCH (21:19)
[2022-11-03] MEDS: MELATONIN 5 MG TABLET PO SCH (21:20)
[2022-11-04] MEDS: IBUPROFEN 600 MG TABLET PO PRN ×2 (07:55→15:37)
[2022-11-04] MEDS: OMEGA-3/DHA/EPA/FISH OIL 1,000 MG CAPSULE PO SCH (09:50)
[2022-11-04] MEDS: THYROID 30 MG TABLET PO SCH (09:50)
[2022-11-04] MEDS: MULTIVITAMINS WITH MINERALS, THERAPEUTIC TABLET PO SCH (09:50)
[2022-11-04] MEDS: ESCITALOPRAM OXALATE 10 MG TABLET PO SCH (09:50)
[2022-11-04] MEDS: MELATONIN 5 MG TABLET PO SCH (20:46)
[2022-11-04] MEDS: QUEtiapine FUMARATE 200 MG TABLET PO SCH (20:46)
[2022-11-04] MEDS: DOCUSATE SODIUM 100 MG CAPSULE PO PRN (20:46)
[2022-11-04 22:17] VITALS: BP 118/81
[2022-11-05 08:04] VITALS: BP 110/68
[2022-11-05] MEDS: IBUPROFEN 600 MG TABLET PO PRN (08:07)
[2022-11-05] MEDS: OMEGA-3/DHA/EPA/FISH OIL 1,000 MG CAPSULE PO SCH (08:17)
[2022-11-05] MEDS: MULTIVITAMINS WITH MINERALS, THERAPEUTIC TABLET PO SCH (08:17)
[2022-11-05] MEDS: ESCITALOPRAM OXALATE 10 MG TABLET PO SCH (08:17)
[2022-11-05] MEDS: THYROID 30 MG TABLET PO SCH (08:18)
[2022-11-05] MEDS: DOCUSATE SODIUM 100 MG CAPSULE PO PRN (18:15)
[2022-11-05 20:00] VITALS: BP 120/80
[2022-11-05] MEDS: ACETAMINOPHEN 325 MG TABLET PO PRN (20:07)
[2022-11-05] MEDS: MELATONIN 5 MG TABLET PO SCH (21:02)
[2022-11-05] MEDS: QUEtiapine FUMARATE 200 MG TABLET PO SCH (21:02)
[2022-11-05 21:53] VITALS: BP 114/79
[2022-11-06] MEDS: THYROID 30 MG TABLET PO SCH (08:39)
[2022-11-06] MEDS: OMEGA-3/DHA/EPA/FISH OIL 1,000 MG CAPSULE PO SCH (08:39)
[2022-11-06] MEDS: ESCITALOPRAM OXALATE 10 MG TABLET PO SCH (08:39)
[2022-11-06] MEDS: MULTIVITAMINS WITH MINERALS, THERAPEUTIC TABLET PO SCH (08:40)
[2022-11-06] MEDS ORDERED: ROPI2TAB26 PO (08:45)
[2022-11-06] MEDS ORDERED: THYR30 PO (08:45)
[2022-11-06] MEDS ORDERED: QUET200T30 PO (08:45)
[2022-11-06 09:31] VITALS: BP 106/75
== END 2022-11-06 10:20 | disposition home or self-care (01) | DRG 750 ==
LOC: EMS 18:59 → 3EC 10-09 01:00
PROVIDERS: ADMIT Psychiatry & Neurology Psychiatry; ATTEND Psychiatry & Neurology Psychiatry
DX: F25.0 Schizoaffective disorder, bipolar type (principal); E03.9 Hypothyroidism, unspecified; F43.12 Post-traumatic stress disorder, chronic; F41.9 Anxiety disorder, unspecified; G47.00 Insomnia, unspecified; Z20.822 Contact with and (suspected) exposure to COVID-19; G25.81 Restless legs syndrome; J44.9 Chronic obstructive pulmonary disease, unspecified; K59.00 Constipation, unspecified; Z79.899 Other long term (current) drug therapy; Z87.891 Personal history of nicotine dependence
CPT/HCPCS: 80053; 80061; 80074; 80307; 81001; 81003; 83036; 84439; 84443; 85025; 86592; 87086; 87186; 87491; 87591; 96372; 99285; 99291; G0480; J1200; J1630; J2060; Q0162; Q9967